=== PATIENT | female | born 2000 | race Caucasian/White ===

== ENCOUNTER 2021-05-26 18:35 | Emergency (ER) | payer OTHER ==
[~2021-05-26] VITALS: Ht 160 cm; Wt 53.1 kg
[2021-05-26] MEDS ORDERED: PROAIR HFA8.5 GM IH (21:28)
[2021-05-26] MEDS ORDERED: ZITHROMAX500 MG PO (21:28)
[2021-05-26] MEDS ORDERED: MEDROLPACK PO (21:28)
[2021-05-26] MEDS ORDERED: TUSNEL LIQUID178 ML PO (21:28)
== END 2021-05-26 21:39 | disposition home or self-care (01) ==
LOC: ER 18:35
DX: R07.0 Pain in throat (principal); R05 Cough

== ENCOUNTER 2021-11-09 20:51 | Emergency (ER) | payer OTHER ==
[~2021-11-09] VITALS: Ht 160 cm; Wt 52.2 kg
[~2021-11-09 20:51] MED LIST: MEDROLPACK PO; PROAIR HFA8.5 GM IH; TUSNEL LIQUID178 ML PO; ZITHROMAX500 MG PO
[2021-11-09] MEDS ORDERED: PANADOL (21:15)
== END 2021-11-09 22:33 | disposition home or self-care (01) ==
LOC: ER 20:51
DX: J06.9 Acute upper respiratory infection, unspecified (principal)